=== PATIENT | male | born 1980 | race African-American/Black ===

== ENCOUNTER 2016-06-12 09:09 | Emergency (ER) | payer MEDICAID ==
[~2016-06-12] VITALS: Ht 172.7 cm; Wt 72.6 kg
[2016-06-12] MEDS ORDERED: ALBUTEROL SULF 2.5 MG/0.5ML(0.5%) NEB SOLN NEB ONE ×2 (09:30→11:00)
[2016-06-12] MEDS ORDERED: IPRATROPIUM BROM 0.5 MG/2.5ML INH SOL NEB ONE ×2 (09:30→11:00)
[2016-06-12 09:48] LABS: Basophils # (auto) 0.1 uL; Basophils % (auto) 0.8 % (0.0-2.0); DEFINITIVE VIEW TRANSMISSION; Eosinophils # (auto) 0.9 uL; Eosinophils % (auto) 9.9 % (0.0-7.0); Hemoglobin 15.8 g/dL (13.5-17.5); Lymphocytes # (auto) 1.9 uL; Lymphocytes % (auto) 20.2 % (10.0-50.0); Mean Corpuscular Hemoglobin 30.6 pg (28.0-32.0); Mean Corpuscular Volume 92.6 fL (80.0-100.0); Mean Platelet Volume 8.6 fL (7.4-10.4); Monocytes # (auto) 0.6 uL; Monocytes % (auto) 6.9 % (0.0-12.0); Neutrophils # (auto) 5.8 uL; Neutrophils % (auto) 62.2 % (37.0-80.0); Platelet Count (auto) 323 10^3/uL (140-450); Red Cell Distribution Width 12.5 % (11.6-16.0); White Blood Cell 9.3 10^3/uL (4.4-10.8)
[2016-06-12 10:00] LABS: Albumin 4.6 g/dL (3.4-5.0); Bilirubin, Total 0.7 mg/dL (0.2-1.0); Calcium 8.7 mg/dL (8.5-10.1); Potassium 3.8 mmol/L (3.5-5.1); Total Protein 7.8 g/dL (6.4-8.2)
[2016-06-12] MEDS ORDERED: methylPREDNISolone SOD SUCC 125 MG/2 ML VL IV ONE (11:00)
[2016-06-12] MEDS ORDERED: LEVOFLOXACIN 500 MG TAB PO ONE (11:00)
[2016-06-12 11:48] VITALS: BP 116/77
== END 2016-06-12 11:49 | disposition home or self-care (01) ==
LOC: ER 09:09
DX: J20.9 Acute bronchitis, unspecified (principal); J45.901 Unspecified asthma with (acute) exacerbation
CPT/HCPCS: 36415; 71010; 80053; 84484; 85025; 93005; 94640; 96374; 99285; J2930

== ENCOUNTER 2016-07-18 22:45 | Emergency (ER) | payer MEDICAID ==
[~2016-07-18] VITALS: Ht 172.7 cm; Wt 50.8 kg
[2016-07-18] MEDS ORDERED: ALBUTEROL SULF 2.5 MG/0.5ML(0.5%) NEB SOLN NEB ONE (23:00)
[2016-07-18] MEDS ORDERED: IPRATROPIUM BROM 0.5 MG/2.5ML INH SOL NEB ONE (23:00)
[2016-07-18] MEDS ORDERED: methylPREDNISolone SOD SUCC 125 MG/2 ML VL IV ONE (23:45)
[2016-07-19] MEDS ORDERED: diphenhdrAMINE HCL 50 MG/1 ML VL IV ONE (01:00)
[2016-07-19] MEDS ORDERED: SODIUM CHLORIDE 0.9% 500 ML IV SCH (01:00)
[2016-07-19] MEDS ORDERED: ALBUTEROL SULF 2.5 MG/0.5ML(0.5%) NEB SOLN NEB ONE (01:00)
[2016-07-19] MEDS ORDERED: IPRATROPIUM BROM 0.5 MG/2.5ML INH SOL NEB ONE (01:00)
[2016-07-19] MEDS ORDERED: LEVOFLOXACIN 500MG 100 ML IV ONE (01:00)
[2016-07-19 04:10] VITALS: BP 122/82
== END 2016-07-19 05:09 | disposition home or self-care (01) ==
LOC: ER 22:50
DX: J45.902 Unspecified asthma with status asthmaticus (principal)
CPT/HCPCS: 71020; 94640; 96365; 96375; 99284; J1200; J1956; J2930; 94644

== ENCOUNTER 2016-07-24 06:35 | Inpatient (IN) | payer MEDICAID ==
[~2016-07-24] VITALS: Ht 172.7 cm; Wt 84.4 kg
[2016-07-24] MEDS ORDERED: IPRATROPIUM BROM 0.5 MG/2.5ML INH SOL NEB ONE (06:45)
[2016-07-24] MEDS ORDERED: methylPREDNISolone SOD SUCC 125 MG/2 ML VL IM ONE (06:45)
[2016-07-24] MEDS ORDERED: ALBUTEROL SULF 2.5 MG/0.5ML(0.5%) NEB SOLN NEB ONE ×2 (06:45→07:15)
[2016-07-24] MEDS ORDERED: SODIUM CHLORIDE 0.9% 1,000 ML IV ONE (07:09)
[2016-07-24] MEDS ORDERED: methylPREDNISolone SOD SUCC 125 MG/2 ML VL IV ONE ×2 (07:15→10:00)
[2016-07-24 07:48] LABS: Basophils # (auto) 0.1 uL; Basophils % (auto) 0.5 % (0.0-2.0); DEFINITIVE VIEW TRANSMISSION; Eosinophils # (auto) 1.5 uL; Eosinophils % (auto) 12.2 % (0.0-7.0); Hemoglobin 15.9 g/dL (13.5-17.5); Lymphocytes # (auto) 1.9 uL; Lymphocytes % (auto) 14.9 % (10.0-50.0); Mean Corpuscular Hemoglobin 30.7 pg (28.0-32.0); Mean Corpuscular Hgb Conc. 33.2 g/dL (32.0-36.0); Mean Corpuscular Volume 92.5 fL (80.0-100.0); Mean Platelet Volume 8.4 fL (7.4-10.4); Monocytes # (auto) 0.6 uL; Monocytes % (auto) 4.7 % (0.0-12.0); Neutrophils # (auto) 8.5 uL; Neutrophils % (auto) 67.7 % (37.0-80.0); Platelet Count (auto) 358 10^3/uL (140-450); Red Cell Distribution Width 12.2 % (11.6-16.0); White Blood Cell 12.6 10^3/uL (4.4-10.8)
[2016-07-24] MEDS ORDERED: MORPHINE SULF INJ 2 MG/ML SYRINGE 1ML ONE (07:48)
[2016-07-24] MEDS ORDERED: ONDANSETRON HCL 4 MG/2 ML VIAL ONE (07:49)
[2016-07-24] MEDS ORDERED: MORPHINE SULF INJ 2 MG/ML SYRINGE 1ML IV ONE (08:00)
[2016-07-24] MEDS ORDERED: ONDANSETRON HCL 4 MG/2 ML VIAL IV ONE (08:00)
[2016-07-24 08:01] LABS: INR 1.02 (0.9-1.15); Partial Thromboplastin Time 26.7 sec (22.64-33.71); Prothrombin Time 10.5 sec (9.37-12.3)
[2016-07-24 08:24] LABS: Albumin 4.5 g/dL (3.4-5.0); Alkaline Phosphatase 88 U/L (45-117); Anion Gap 10 (5-15); Aspartate Aminotransferase 17 U/L (15-37); BUN/Creatinine Ratio 13.8; Bilirubin, Total 0.4 mg/dL (0.2-1.0); Blood Urea Nitrogen 12 mg/dL (7-18); Calcium 8.4 mg/dL (8.5-10.1); Carbon Dioxide 26 mmol/L (21-32); Chloride 109 mmol/L (98-107); GFR African American 128 mL/min; GFR Non-African American 106 mL/min; Glucose 118 mg/dL (74-106); Potassium 3.7 mmol/L (3.5-5.1); Sodium 145 mmol/L (136-145); Total Protein 7.9 g/dL (6.4-8.2)
[2016-07-24] MEDS ORDERED: LACTULOSE 20Gm/30ML SOLN PO PRN (08:30)
[2016-07-24] MEDS ORDERED: LORazepam 0.5 MG TAB PO PRN (08:30)
[2016-07-24] MEDS ORDERED: ALBUTEROL SULF 2.5 MG/0.5ML(0.5%) NEB SOLN NEB PRN (08:30)
[2016-07-24] MEDS ORDERED: NITROGLYCERIN 0.4 MG SL TAB SL PRN (08:30)
[2016-07-24] MEDS ORDERED: LEVOFLOXACIN 500MG 100 ML IV ONE (08:30)
[2016-07-24] MEDS ORDERED: ACETAMINOPHEN 500 MG TAB PO PRN (08:30)
[2016-07-24] MEDS ORDERED: MORPHINE SULF INJ 2 MG/ML SYRINGE 1ML IV PRN ×2 (08:30)
[2016-07-24] MEDS ORDERED: OSELTAMIVIR 75 MG CAP PO ONE (08:30)
[2016-07-24] MEDS ORDERED: PROMETHAZINE HCL 25 MG/ML 1ML IV PRN (08:30)
[2016-07-24] MEDS: SODIUM CHLORIDE 0.9% 1,000 ML IV SCH ×2 (08:54→21:30)
[2016-07-24] MEDS ORDERED: ENOXAPARIN SOD 40 MG/0.4 ML SYRINGE SC SCH (10:00)
[2016-07-24] MEDS: DOXYCYCLINE HYC 100MG/250ML 250 ML IV SCH ×2 (10:02→21:29)
[2016-07-24] MEDS ORDERED: IOHEXOL 350 MG/ML 100ML IJ ONE (10:37)
[2016-07-24] MEDS: HYDROcodone-ACET 5/325MG TAB PO PRN ×2 (15:02→21:30)
[2016-07-24 15:23] VITALS: BP 118/74
[2016-07-24] MEDS ORDERED: ALBU2TAB4 PO (16:30)
[2016-07-24] MEDS: IPRATROPIUM BROM 0.5 MG/2.5ML INH SOL NEB SCH ×2 (16:38→19:36)
[2016-07-24] MEDS: ALBUTEROL SULF 2.5 MG/0.5ML(0.5%) NEB SOLN NEB SCH ×2 (16:38→19:37)
[2016-07-24] MEDS: methylPREDNISolone SOD SUCC 40 MG/ML VL IV SCH ×2 (18:11→21:30)
[2016-07-24] MEDS ORDERED: OSELTAMIVIR 75 MG CAP PO SCH (21:00)
[2016-07-24] MEDS: TEMAZEPAM 15 MG CAP PO PRN (21:30)
[2016-07-24 21:52] VITALS: BP 118/74
[2016-07-24 22:00] VITALS: BP 111/70
[2016-07-25] VITALS (7 sets, daily range): BP systolic 100–111; BP diastolic 61–70
[2016-07-25] MEDS: ALBUTEROL SULF 2.5 MG/0.5ML(0.5%) NEB SOLN NEB SCH ×4 (01:01→19:22)
[2016-07-25] MEDS: IPRATROPIUM BROM 0.5 MG/2.5ML INH SOL NEB SCH ×4 (01:01→19:22)
[2016-07-25] MEDS: methylPREDNISolone SOD SUCC 40 MG/ML VL IV SCH ×3 (05:53→21:41)
[2016-07-25] MEDS: DOXYCYCLINE HYC 100MG/250ML 250 ML IV SCH ×2 (06:40→20:12)
[2016-07-25] MEDS: TEMAZEPAM 15 MG CAP PO PRN (21:45)
[2016-07-26] MEDS: IPRATROPIUM BROM 0.5 MG/2.5ML INH SOL NEB SCH ×2 (01:01→06:00)
[2016-07-26] MEDS: ALBUTEROL SULF 2.5 MG/0.5ML(0.5%) NEB SOLN NEB SCH ×2 (01:01→06:00)
[2016-07-26 05:00] VITALS: BP 108/66
[2016-07-26] MEDS: methylPREDNISolone SOD SUCC 40 MG/ML VL IV SCH (05:37)
[2016-07-26 08:00] VITALS: BP 105/67
[2016-07-26] MEDS: DOXYCYCLINE HYC 100MG/250ML 250 ML IV SCH (08:44)
[2016-07-26 09:00] VITALS: BP 105/67
[2016-07-26 09:43] VITALS: BP 105/67
== END 2016-07-26 10:40 | disposition home or self-care (01) | DRG 141 ==
LOC: ER 06:36 → TELE 06:37 → TELE-E-ADS 14:56 → TELE-CENTR 17:20 → CENTRAL 07-25 17:06
PROVIDERS: ADMIT Internal Medicine; ATTEND Internal Medicine
DX: J45.901 Unspecified asthma with (acute) exacerbation (principal); D72.829 Elevated white blood cell count, unspecified; Z88.0 Allergy status to penicillin; Z82.49 Family history of ischemic heart disease and other diseases of the circulatory system
CPT/HCPCS: 36415; 36600; 71010; 71275; 80053; 82805; 84484; 85025; 85379; 85610; 85730; 87040; 87081; 87400; 93005; 94640; 94644; 96365; 96372; 96375; 96376; J1956; J2405; J3490

== ENCOUNTER 2018-01-03 22:45 | Emergency (ER) | payer MEDICAID ==
[~2018-01-03] VITALS: Ht 172.7 cm; Wt 72.6 kg
[~2018-01-03 22:45] MED LIST: ALBU2TAB4 PO
[2018-01-04] MEDS ORDERED: traMADol HCL 50 MG TAB PO ONE (06:15)
[2018-01-04 07:24] VITALS: BP 111/74
== END 2018-01-04 07:26 | disposition home or self-care (01) ==
LOC: ER 22:49
DX: S16.1XXA Strain of muscle, fascia and tendon at neck level, initial encounter (principal); S20.212A Contusion of left front wall of thorax, initial encounter; J45.909 Unspecified asthma, uncomplicated; Z88.0 Allergy status to penicillin; V43.52XA Car driver injured in collision with other type car in traffic accident, initial encounter; Y93.89 Activity, other specified; Y92.488 Other paved roadways as the place of occurrence of the external cause; Y99.8 Other external cause status
CPT/HCPCS: 71101; 72040

== ENCOUNTER 2021-03-11 09:43 | Emergency (ER) | payer SELFPAY ==
[~2021-03-11] VITALS: Ht 172.7 cm; Wt 74.8 kg
[2021-03-11 09:49] VITALS: BP 124/80
[2021-03-11] MEDS ORDERED: IPRATROPIUM BROM 0.5 MG/2.5ML INH SOL NEB ONE ×2 (10:00)
[2021-03-11] MEDS ORDERED: ALBUTEROL SULF 2.5 MG/0.5ML(0.5%) NEB SOLN NEB ONE ×3 (10:00→12:15)
[2021-03-11] MEDS ORDERED: methylPREDNISolone SOD SUCC 125 MG/2 ML VL IV ONE (10:00)
[2021-03-11 10:46] LABS: Basophils # (auto) 0 10 ^3/uL (0-0.2); Basophils % (auto) 0.1 % (0.0-2.0); Eosinophils # (auto) 1.1 10 ^3/uL (0-0.8); Eosinophils % (auto) 8.9 % (0.0-7.0); Hematocrit 45.2 % (41.0-53.0); Hemoglobin 15.6 g/dL (13.5-17.5); Lymphocytes # (auto) 1.9 10 ^3/uL (0.4-5.4); Lymphocytes % (auto) 15.6 % (10.0-50.0); Mean Corpuscular Hemoglobin 31.8 pg (28.0-32.0); Mean Corpuscular Hgb Conc. 34.4 g/dL (32.0-36.0); Mean Corpuscular Volume 92.3 fL (80.0-100.0); Monocytes # (auto) 0.6 10 ^3/uL (0-1.3); Neutrophils # (auto) 8.7 10 ^3/uL (1.6-8.6); Neutrophils % (auto) 70.4 % (37.0-80.0); Red Cell Distribution Width 13.4 % (11.8-14.3); White Blood Cell 12.4 10^3/uL (4.4-10.8)
[2021-03-11 11:23] LABS: Chloride 109 mmol/L (98-107); Potassium 4.3 mmol/L (3.5-5.1); Sodium 140 mmol/L (136-145)
[2021-03-11 11:37] LABS: Alanine Aminotransferase 46 U/L (16-61); Alkaline Phosphatase 61 U/L (45-117); Anion Gap 5 (5-15); Aspartate Aminotransferase 15 U/L (15-37); BUN/Creatinine Ratio 18.3; Bilirubin, Total 0.7 mg/dL (0.2-1.0); Blood Urea Nitrogen 15 mg/dL (7-18); Calcium 8.6 mg/dL (8.5-10.1); Carbon Dioxide 26 mmol/L (21-32); GFR African American 133 mL/min; GFR Non-African American 110 mL/min; Glucose 99 mg/dL (74-106); Total Protein 7.5 g/dL (6.4-8.2)
[2021-03-11 12:12] LABS: Urine Bacteria NONE SEEN /hpf (None Seen); Urine Blood Negative /uL (Negative); Urine Specific Gravity 1.015 (1.001-1.035); Urine WBC <1 /hpf (0 - 3)
== END 2021-03-11 13:34 | disposition home or self-care (01) ==
LOC: ER 09:43
DX: J45.901 Unspecified asthma with (acute) exacerbation (principal)
CPT/HCPCS: 36415; 71045; 80053; 81001; 84484; 85025; 94640; 94644; 96374; 99285; J2930; J7644

== ENCOUNTER 2021-03-29 20:34 | Emergency (ER) | payer MEDICAID ==
[~2021-03-29] VITALS: Ht 172.7 cm; Wt 73.5 kg
[2021-03-29] MEDS ORDERED: IPRATROPIUM BROM 0.5 MG/2.5ML INH SOL NEB ONE ×2 (20:45→22:00)
[2021-03-29] MEDS ORDERED: methylPREDNISolone SOD SUCC 125 MG/2 ML VL IV ONE (20:45)
[2021-03-29] MEDS ORDERED: ALBUTEROL SULF 2.5 MG/0.5ML(0.5%) NEB SOLN NEB ONE ×2 (20:45→22:00)
[2021-03-29 21:11] LABS: Hematocrit 46.6 % (41.0-53.0); Hemoglobin 15.4 g/dL (13.5-17.5); Mean Corpuscular Hemoglobin 31.1 pg (28.0-32.0); Mean Corpuscular Volume 94.3 fL (80.0-100.0); Red Blood Cells 4.94 10^6/uL (4.5-5.90); Red Cell Distribution Width 12.9 % (11.8-14.3); White Blood Cell 11.5 10^3/uL (4.4-10.8)
[2021-03-29 21:14] LABS: Basophils % (manual) 0 (0.0-2.0); Blast Cells 0; Metamyelocytes % 0; Myelocytes % 0; Promyelocytes % 0; Reactive Lymphocytes 0
[2021-03-29] MEDS: MAGNESIUM SULFATE 1GM/100ML 100 ML IV SCH ×2 (21:17→22:00)
[2021-03-29] MEDS ORDERED: SODIUM CHLORIDE 0.9% 1,000 ML IV ONE (21:30)
[2021-03-29 21:31] LABS: Alanine Aminotransferase 41 U/L (16-61); Anion Gap 10 (5-15); Blood Urea Nitrogen 11 mg/dL (7-18); Calcium 8.6 mg/dL (8.5-10.1); Carbon Dioxide 22 mmol/L (21-32); Chloride 107 mmol/L (98-107); Glucose 90 mg/dL (74-106); Sodium 139 mmol/L (136-145)
[2021-03-29 21:33] LABS: Alkaline Phosphatase 65 U/L (45-117); BUN/Creatinine Ratio 13.1; GFR African American 130 mL/min; GFR Non-African American 107 mL/min
[2021-03-29 21:34] LABS: Aspartate Aminotransferase 20 U/L (15-37); Bilirubin, Total 0.4 mg/dL (0.2-1.0); Total Protein 7.8 g/dL (6.4-8.2)
[2021-03-29 22:35] VITALS: BP 133/72
[2021-03-30 00:23] LABS: Band Neutrophils % (manual) 2; Eosinophils % (manual) 4 (0-7); Lymphocytes % (manual) 18 (10.0-50.0); Monocytes % (manual) 2 (0-12)
== END 2021-03-29 23:26 | disposition home or self-care (01) ==
LOC: ER 20:34
DX: J45.901 Unspecified asthma with (acute) exacerbation (principal); J45.909 Unspecified asthma, uncomplicated; Z20.822 Contact with and (suspected) exposure to COVID-19
CPT/HCPCS: 36415; 71045; 80053; 83735; 85007; 85027; 87426; 93005; 94640; 94644; 96365; 96366; 96375; 99285; J2930; J3475; J7030; J7644

== ENCOUNTER 2021-04-16 22:42 | Emergency (ER) | payer MEDICAID ==
[~2021-04-16] VITALS: Ht 172.7 cm; Wt 74.8 kg
[2021-04-16] MEDS ORDERED: ALBUTEROL SULF 2.5 MG/0.5ML(0.5%) NEB SOLN NEB STA (22:49)
[2021-04-16] MEDS ORDERED: IPRATROPIUM BROM 0.5 MG/2.5ML INH SOL NEB ONE (23:00)
[2021-04-16] MEDS ORDERED: methylPREDNISolone SOD SUCC 125 MG/2 ML VL IM ONE (23:30)
[2021-04-17 03:12] VITALS: BP 135/86
[2021-04-17] MEDS ORDERED: methylPREDNISolone SOD SUCC 125 MG/2 ML VL IM ONE (03:15)
[2021-04-17] MEDS ORDERED: IPRATROPIUM BROM 0.5 MG/2.5ML INH SOL NEB ONE (03:15)
[2021-04-17] MEDS ORDERED: ALBUTEROL SULF 2.5 MG/0.5ML(0.5%) NEB SOLN NEB ONE (03:15)
== END 2021-04-17 04:31 | disposition home or self-care (01) ==
LOC: ER 22:42
DX: J45.909 Unspecified asthma, uncomplicated (principal); Z76.0 Encounter for issue of repeat prescription; R07.2 Precordial pain
CPT/HCPCS: 71045; 94640; 94644; 96372; 99285; J2930; J7644

== ENCOUNTER 2021-05-04 14:02 | Emergency (ER) | payer MEDICAID ==
[~2021-05-04] VITALS: Ht 172.7 cm; Wt 74.8 kg
[2021-05-04 14:48] VITALS: BP 133/83
[2021-05-04] MEDS ORDERED: ALBUTEROL SULF 2.5 MG/0.5ML(0.5%) NEB SOLN NEB ONE ×2 (15:00→16:00)
[2021-05-04] MEDS ORDERED: IPRATROPIUM BROM 0.5 MG/2.5ML INH SOL NEB ONE ×2 (15:00→16:00)
[2021-05-04] MEDS ORDERED: methylPREDNISolone SOD SUCC 125 MG/2 ML VL IM ONE (15:00)
== END 2021-05-04 17:08 | disposition home or self-care (01) ==
LOC: ER 14:02
DX: J45.901 Unspecified asthma with (acute) exacerbation (principal)
CPT/HCPCS: 94640; 96372; 99284; J2930; J7644

== ENCOUNTER 2021-05-26 22:48 | Inpatient (IN) | payer MEDICAID ==
[~2021-05-26] VITALS: Ht 172.7 cm; Wt 165.0 kg
[2021-05-26] MEDS ORDERED: IPRATROPIUM BROM 0.5 MG/2.5ML INH SOL ONE (22:53)
[2021-05-26] MEDS ORDERED: ALBUTEROL SULF 2.5 MG/0.5ML(0.5%) NEB SOLN ONE (22:53)
[2021-05-26] MEDS ORDERED: IPRATROPIUM BROM 0.5 MG/2.5ML INH SOL NEB ONE ×2 (23:00→23:45)
[2021-05-26] MEDS ORDERED: ALBUTEROL SULF 2.5 MG/0.5ML(0.5%) NEB SOLN NEB ONE ×2 (23:00→23:45)
[2021-05-26] MEDS ORDERED: methylPREDNISolone SOD SUCC 125 MG/2 ML VL IV ONE (23:00)
[2021-05-27] MEDS: MAGNESIUM SULFATE 1GM/100ML 100 ML IV SCH ×2 (00:26→01:17)
[2021-05-27] MEDS ORDERED: ALBUTEROL SULF 2.5 MG/0.5ML(0.5%) NEB SOLN NEB ONE (10:15)
[2021-05-27] MEDS ORDERED: LEVALBUTEROL HCL 1.25 MG/3 ML NEB ONE (10:51)
[2021-05-27] MEDS ORDERED: NITROGLYCERIN 0.4 MG SL TAB SL PRN (11:45)
[2021-05-27] MEDS ORDERED: ONDANSETRON HCL 4 MG/2 ML VIAL IV PRN (11:45)
[2021-05-27] MEDS ORDERED: MORPHINE SULFATE INJECTION 2 MG/ML SYRG IV PRN (11:45)
[2021-05-27] MEDS ORDERED: HYDROcodone-ACET 5/325MG TAB PO PRN (11:45)
[2021-05-27] MEDS ORDERED: ACETAMINOPHEN 325 MG TAB PO PRN (11:45)
[2021-05-27] MEDS ORDERED: MORPHINE SULFATE 4 MG/ML SYR/VIAL IV PRN (11:45)
[2021-05-27] MEDS: LEVALBUTEROL HCL 1.25 MG/3 ML NEB NEB SCH ×2 (12:00→18:00)
[2021-05-27] MEDS ORDERED: methylPREDNISolone SOD SUCC 125 MG/2 ML VL IV SCH (13:38)
[2021-05-27 13:46] LABS: Basophils # (auto) 0 10 ^3/uL (0-0.2); Basophils % (auto) 0.5 % (0.0-2.0); Eosinophils # (auto) 0 10 ^3/uL (0-0.8); Eosinophils % (auto) 0.2 % (0.0-7.0); Hematocrit 43.3 % (41.0-53.0); Hemoglobin 14.7 g/dL (13.5-17.5); Lymphocytes # (auto) 0.8 10 ^3/uL (0.4-5.4); Lymphocytes % (auto) 8.7 % (10.0-50.0); Mean Corpuscular Hemoglobin 30.9 pg (28.0-32.0); Monocytes # (auto) 0.3 10 ^3/uL (0-1.3); Monocytes % (auto) 3.6 % (0.0-12.0); Neutrophils # (auto) 7.5 10 ^3/uL (1.6-8.6); Red Blood Cells 4.75 10^6/uL (4.5-5.90); Red Cell Distribution Width 13.2 % (11.8-14.3); White Blood Cell 8.6 10^3/uL (4.4-10.8)
[2021-05-27] MEDS: ALBUTEROL SULF 2.5 MG/0.5ML(0.5%) NEB SOLN NEB SCH ×2 (14:00→18:00)
[2021-05-27 14:06] LABS: BUN/Creatinine Ratio 19.2; Calcium 9.5 mg/dL (8.5-10.1); Potassium 4.7 mmol/L (3.5-5.1)
[2021-05-27] MEDS: AZITHROMYCIN 500MG/ 250ML 250 ML IV SCH (14:28)
[2021-05-27 21:35] VITALS: BP 111/70
[2021-05-28 04:49] VITALS: BP 114/59
[2021-05-28] MEDS: LEVALBUTEROL HCL 1.25 MG/3 ML NEB NEB SCH ×5 (05:58→23:59)
[2021-05-28 07:32] LABS: Basophils # (auto) 0 10 ^3/uL (0-0.2); Basophils % (auto) 0.3 % (0.0-2.0); Eosinophils # (auto) 0 10 ^3/uL (0-0.8); Eosinophils % (auto) 0.2 % (0.0-7.0); Hematocrit 42.2 % (41.0-53.0); Hemoglobin 14.2 g/dL (13.5-17.5); Lymphocytes # (auto) 1.3 10 ^3/uL (0.4-5.4); Lymphocytes % (auto) 7.8 % (10.0-50.0); Mean Corpuscular Hgb Conc. 33.7 g/dL (32.0-36.0); Monocytes # (auto) 1.2 10 ^3/uL (0-1.3); Monocytes % (auto) 7.4 % (0.0-12.0); Neutrophils # (auto) 13.8 10 ^3/uL (1.6-8.6); Neutrophils % (auto) 84.3 % (37.0-80.0); Red Blood Cells 4.59 10^6/uL (4.5-5.90); Red Cell Distribution Width 13.2 % (11.8-14.3); White Blood Cell 16.3 10^3/uL (4.4-10.8)
[2021-05-28 07:54] LABS: Potassium 4.6 mmol/L (3.5-5.1)
[2021-05-28 08:00] VITALS: BP 116/74
[2021-05-28 08:00] LABS: Albumin 4.4 g/dL (3.4-5.0); BUN/Creatinine Ratio 29.1; Bilirubin, Total 0.8 mg/dL (0.2-1.0); Calcium 9.1 mg/dL (8.5-10.1); Total Protein 7.5 g/dL (6.4-8.2)
[2021-05-28 09:00] VITALS: BP 116/74
[2021-05-28] MEDS ORDERED: REMDESIVIR PER PHARMACY 0 ML IV SCH (09:30)
[2021-05-28] MEDS: DexAMETHasone SOD PHOS 10MG/1ML VIAL INJ IV SCH (11:37)
[2021-05-28] MEDS: ZINC SULFATE 220mg CAP or TAB PO SCH (11:37)
[2021-05-28] MEDS: ENOXAPARIN SOD 40 MG/0.4 ML SYRINGE SC SCH (11:38)
[2021-05-28] MEDS: CHOLECALCIFEROL (VITD3) 2,000 UNIT CAP/TAB PO SCH (11:38)
[2021-05-28] MEDS: ASCORBIC ACID 500 MG TAB PO SCH (11:38)
[2021-05-28] MEDS ORDERED: LEVA1NEB5 NEB (12:03)
[2021-05-28] MEDS: AZITHROMYCIN 500MG/ 250ML 250 ML IV SCH (12:29)
[2021-05-28 13:00] VITALS: BP 119/73
[2021-05-28 16:53] VITALS: BP 107/71
[2021-05-28 20:00] VITALS: BP 125/76
[2021-05-29 05:00] VITALS: BP 107/70
[2021-05-29] MEDS: LEVALBUTEROL HCL 1.25 MG/3 ML NEB NEB SCH ×2 (07:11→12:36)
[2021-05-29] MEDS: DexAMETHasone SOD PHOS 10MG/1ML VIAL INJ IV SCH (09:50)
[2021-05-29] MEDS: ZINC SULFATE 220mg CAP or TAB PO SCH (09:50)
[2021-05-29] MEDS: AZITHROMYCIN 500MG/ 250ML 250 ML IV SCH (09:50)
[2021-05-29] MEDS: ENOXAPARIN SOD 40 MG/0.4 ML SYRINGE SC SCH (09:53)
[2021-05-29] MEDS: CHOLECALCIFEROL (VITD3) 2,000 UNIT CAP/TAB PO SCH (09:53)
[2021-05-29] MEDS: ASCORBIC ACID 500 MG TAB PO SCH (09:53)
[2021-05-29 10:10] VITALS: BP 109/75
[2021-05-29] MEDS ORDERED: METH4PAK PO (11:20)
[2021-05-29] MEDS ORDERED: DOXY-286 PO (11:20)
[2021-05-29 12:21] VITALS: BP 109/75
[2021-05-29 15:09] VITALS: BP 115/70
== END 2021-05-29 14:56 | disposition home or self-care (01) | DRG 137 ==
LOC: ER 22:49 → TELE 05-27 11:34 → TELE-EAST 05-27 21:34
PROVIDERS: ADMIT Internal Medicine; ATTEND Internal Medicine
DX: U07.1 COVID-19 (principal); J96.01 Acute respiratory failure with hypoxia; J12.82 Pneumonia due to coronavirus disease 2019; J45.901 Unspecified asthma with (acute) exacerbation; I10 Essential (primary) hypertension; J20.8 Acute bronchitis due to other specified organisms; J44.0 Chronic obstructive pulmonary disease with (acute) lower respiratory infection; J20.9 Acute bronchitis, unspecified; J98.11 Atelectasis; Z83.3 Family history of diabetes mellitus; Z87.891 Personal history of nicotine dependence; Z88.0 Allergy status to penicillin; Z28.21 Immunization not carried out because of patient refusal
CPT/HCPCS: 36415; 71045; 80048; 80053; 85025; 87081; 87426; 93306; 94640; 96365; 96375; 99291; G0378; J1100